=== PATIENT | female | born 1980 | race Hispanic/Latino ===

== ENCOUNTER 2018-04-03 09:17 | Emergency (ER) | payer OTHER ==
[2018-04-03] MEDS ORDERED: CEFTRIAXONE SODIUM 1 GM ONE (10:13)
[2018-04-03] MEDS ORDERED: SODIUM CHLORIDE 0.9% 50 ML IV ONE (10:13)
[2018-04-03 10:27] LABS: BASOPHILS % (AUTO) 0.3 % (0.0-5.0); EOSINOPHILS % (AUTO) 1.3 % (0.0-8.0); HEMATOCRIT 39.6 % (36-48); LYMPHOCYTES % (AUTO) 31.8 % (21.0-51.0); MEAN CORPUSCULAR HEMOGLOBIN 26.3 pg (27.0-33.0); MEAN CORPUSCULAR HGB CONC 32.1 g/dL (32.0-36.0); MEAN CORPUSCULAR VOLUME 81.8 fL (79-99); MONOCYTES % (AUTO) 6.9 % (3.0-13.0); NEUTROPHILS % (AUTO) 59.7 % (40.0-77.0); PLATELET COUNT (AUTO) 204 K/uL (130-400); RED BLOOD CELL COUNT(AUTO) 4.84 MIL/uL (4.00-5.50); RED CELL DISTRIBUTION WIDTH 15.1 % (11.0-15.5); WHITE BLOOD COUNT (AUTO) 5.8 K/uL (4.8-10.8)
[2018-04-03 10:35] LABS: CREATININE 0.7 mg/dL (0.5-1.5); POTASSIUM 3.5 mmol/L (3.5-5.1)
[2018-04-03 10:47] LABS: INR 0.95 (0.85-1.15); PARTIAL THROMBOPLASTIN TIME 32.6 SEC (26.3-35.5)
== END 2018-04-03 11:50 | disposition home or self-care (01) ==
LOC: EDH 09:17
DX: L03.116 Cellulitis of left lower limb (principal)
CPT/HCPCS: 36415; 80048; 85025; 85610; 85730; 93971; 96374; 99285; J0696

== ENCOUNTER 2019-06-04 18:58 | Emergency (ER) | payer OTHER ==
[2019-06-04] MEDS ORDERED: NAPROXEN 500 MG TABLET ONE (19:21)
[2019-06-04] MEDS ORDERED: DIAZEPAM 5 MG TABLET ONE (19:21)
== END 2019-06-04 20:13 | disposition home or self-care (01) ==
LOC: EDH 18:58
DX: S16.1XXA Strain of muscle, fascia and tendon at neck level, initial encounter (principal); S39.012A Strain of muscle, fascia and tendon of lower back, initial encounter; V59.49XA Driver of pick-up truck or van injured in collision with other motor vehicles in traffic accident, initial encounter; Y93.89 Activity, other specified; Y92.89 Other specified places as the place of occurrence of the external cause; Y99.8 Other external cause status